=== PATIENT | male | born 1995 | race Caucasian/White ===

== ENCOUNTER 2020-04-25 16:41 | Outpatient (CLI) | payer BC ==
--- NOTE | 2020-04-25 18:53 | XRAY Report ---
PROCEDURE: Wrist 4 View RT INDICATIONS: Right wrist sprain TECHNIQUE: 4 views of the wrist were acquired. COMPARISON: None FINDINGS: No fracture or dislocation. Osseous and soft tissue structures are unremarkable. IMPRESSION: No acute finding. Reviewed by: Yusuf Mancilla MD on 04/25/2020 6:52 PM PDT Approved by: Yusuf Mancilla MD on 04/25/2020 6:52 PM PDT Station ID: [id number]
== END 2020-04-25 16:42 | disposition home or self-care (01) ==
LOC: DI.S 16:41
PROVIDERS: ATTEND Emergency Medicine
DX: S63.591A Other specified sprain of right wrist, initial encounter (principal)